=== PATIENT | female | born 1970 | race Caucasian/White ===

== ENCOUNTER → 2019-09-23 10:56 | Outpatient (CLI) | payer BC, SELFPAY ==
[2017-04-23 13:51] VITALS: BMI 24.2
[2019-09-23 12:58] LABS: Amphetamine Urine VISTA NEGATIVE (<1000 ng/mL); Barbiturate Urine VISTA NEGATIVE (< 200 ng/mL); Benzodiazepine Urine VISTA NEGATIVE (< 200 ng/mL); Cocaine Urine VISTA NEGATIVE (< 300 ng/mL); Ecstacy Urine VISTA NEGATIVE (< 500 ng/mL); Methadone Urine VISTA NEGATIVE (< 300 ng/mL); PCP Urine VISTA NEGATIVE (< 25 ng/mL); THC Urine VISTA NEGATIVE (< 50 ng/mL); Vista UDS pH Range 5
== END ==
LOC: MFPLAB 10:59 → LABSPEC 11:04
PROVIDERS: Visit Provider Family Medicine
DX: Z02.83 Encounter for blood-alcohol and blood-drug test (principal)
CPT/HCPCS: 80307

== ENCOUNTER → 2019-11-11 10:28 | Outpatient (CLI) | payer BC, SELFPAY ==
[2017-04-23 13:51] VITALS: BMI 24.2
[2019-11-11 13:11] LABS: Cholesterol 190 mg/dL (200); High Density Lipoprotein 52 mg/dL; Triglycerides 55 mg/dL; Very Low Density Lipoprotein 11 mg/dL (5-40)
[2019-11-16 21:26] LABS: HPV HC, High Risk Negative (Negative)
== END ==
PROVIDERS: Family Provider Family Medicine; PCP Family Medicine; Referring Provider Family Medicine; Visit Provider Family Medicine
DX: Z12.4 Encounter for screening for malignant neoplasm of cervix (principal); Z13.220 Encounter for screening for lipoid disorders
CPT/HCPCS: 36415; 80061; 87624; 88175; G0145

== ENCOUNTER → 2019-11-26 15:03 | Outpatient (CLI) | payer BC, SELFPAY ==
--- NOTE | 2019-11-26 15:06 | BI_ITS ---
MAMMOGRAPHY - BILATERAL SCREENING 3-D TOMOSYNTHESIS REASON FOR EXAM: Female, 49 years old. Annual screening mammogram. PERTINENT HISTORY: History of right needle biopsy. Bilateral implants in 2012. TECHNIQUE: 2-D mammograms and 3-D Tomosynthesis of the breast (s) were performed. Implant displacement views were also obtained. CAD was performed. COMPARISON: None. FINDINGS: The breast composition is composed of scattered fibroglandular density. Some glandular silicone implants without complications. Scattered benign calcifications are seen. No dense spiculated masses or suspicious microcalcifications are identified. No architectural distortion is identified. There is no skin thickening or retraction. There has been no significant change since the prior study. BI/SCREEN MAMM (CAD) W/JOSE ANTONIO BILAT IMPRESSION: No mammographic signs of malignancy. Routine yearly mammograms recommended. ASSESSMENT CATEGORY: BIRADS Category 2: Benign. A letter regarding these results will be sent to the patient by the facility within 30 days. FOLLOW UP RECOMMENDATION: Yearly follow up mammogram recommended. (A) Approximately 10% of breast cancers are not detected by mammography. A normal mammogram should not delay biopsy of a clinically suspicious abnormality. Electronically Signed: Corbin Arevalo MD at 16:57 EST , Service support ,
== END ==
PROVIDERS: Family Provider Family Medicine; PCP Family Medicine; Referring Provider Family Medicine; Visit Provider Family Medicine
DX: Z12.31 Encounter for screening mammogram for malignant neoplasm of breast (principal); Z12.4 Encounter for screening for malignant neoplasm of cervix
CPT/HCPCS: 77063; 77067

== ENCOUNTER → 2020-12-19 14:21 | Outpatient (CLI) | payer BC, SELFPAY ==
--- NOTE | 2020-12-19 14:27 | RAD_ITS ---
STUDY: X-RAY - CERVICAL SPINE REASON FOR EXAM: Female, 50 years old. LEFT ARM NUMBNESS, FUSION OF SPINE March 2019 TECHNIQUE: 7 view(s) of the cervical spine were obtained. COMPARISON: 09/12/2012 FINDINGS: Normal anterior atlantoaxial articulation. Normal odontoid process. Normal cervical lordosis. Status post anterior cervical discectomy and fusion at C5/C6 with anatomic alignment and no subluxation on the flexion or extension views to suggest instability. Normal vertebral bodies and endplates. Normal disc space heights. Normal visualized intervertebral neuroforamina. The soft tissue structures are unremarkable. RAD/Cerv Spine Obl/Flex/Ext Comp IMPRESSION: Interval anterior cervical discectomy and fusion at C5/C6 with anatomic alignment and no instability. Electronically Signed: Everardo Pagan MD at 16:58 EST Tel , Service support ,
== END ==
PROVIDERS: PCP Family Medicine
DX: M43.22 Fusion of spine, cervical region (principal)
CPT/HCPCS: 72052

== ENCOUNTER → 2021-04-17 10:06 | Outpatient (CLI) | payer BC, SELFPAY ==
[2021-01-23 15:16] VITALS: BMI 26.2
== END ==
LOC: LAB 10:08 → LABSPEC 10:11
PROVIDERS: PCP Family Medicine; Referring Provider Family Medicine; Visit Provider Family Medicine
DX: N39.0 Urinary tract infection, site not specified (principal)
CPT/HCPCS: 87086; 87088

== ENCOUNTER → 2021-04-20 18:01 | Outpatient (CLI) | payer BC, SELFPAY ==
[2021-01-23 15:16] VITALS: BMI 26.2
[2021-04-20 18:03] LABS: Bacteria 0 SEEN /hpf (None Seen); Mucous, Urine 0 SEEN /hpf (<or=2+); Red Blood Cells-Urine 0 SEEN /hpf (0-5); White Blood Cells 0 SEEN /hpf (0-5)
[2021-04-20 18:09] LABS: Color, Urine Yellow (Yellow); Glucose, Dipstick Normal (Normal); Ketone-Dipstick Negative (Negative); Leukocyte Esterase-Dipstick Negative /ul (Negative); Nitrite-Dipstick Negative (Negative); Occult Blood-Urine 10 /ul (Negative); Protein-Dipstick Negative (Negative); Urine Bilirubin Dipstick Negative (Negative); Urine Clarity Clear (Clear); Urine Urobilinogen 1 mg/dl (Normal)
[2021-04-20 18:16] LABS: Squamous Epithelial Cells - UA 0-5 SEEN /hpf (5-10)
== END ==
PROVIDERS: PCP Family Medicine; Referring Provider Family Medicine; Visit Provider Family Medicine
DX: N39.0 Urinary tract infection, site not specified (principal)
CPT/HCPCS: 81001; 87086; 87088

== ENCOUNTER 2021-11-22 12:30 | Outpatient (RCR) | payer OTHER, BC, SELFPAY ==
--- NOTE | 2021-11-05 16:12 | HP.PTEVAL ---
Patient's Visit Information CHAYO MADSEN is a 51 year old F referred to Physical Therapy by Dr. Joni Nieto MD with a diagnosis of LEFT SHOULDER SPRAIN. Date of Evaluation: 11/05/21 Physical Therapist: Joni Oropeza PT, Cert MDT, OCS - Visit Plan Frequency: 2-3x /Week Duration: 4 Weeks Plan: PT INTERVENTIONS POSTURAL EX'S ,RTC/SCAPULAR,STRENGTHENING, AND MODALTIES - Subjective This 51 y/o female presents to physical therapy for left shoulder sprain. Patient injury left shoulder NOV 2 at work pushing w/c up ramp. Patient felt crack in shoulder, Patient had pain ,thus seen DR at [facility] recommended PT and flexural. Patient had x-rays -. C/O paresthesia /tingling in hand. Pain left shoulder to elbow and muscle spasms scapular /thoracic spine. Aggravating factors sitting ,raising arm ,lifting something. Pain affects sleeping. Patient also c/o HALL. Alleviating heat/ice. Patient hasn't RTW. Patient pain affects QOL and function and RTW. PMH: cervical fusion with bone graft /plate srews. SOCIAL: marrried. VOCATION: [employer] - Pain Left Shoulder Pain Intensity (Out of 10): 4 Left Scapula Pain Intensity (Out of 10): 5 Pain Intensity Range: 10 - Objective POSTURE: mild forward posture. PALAPTION: UT /levator. NEURO: c/o paresthesia/tingling left hand. AROM: left shoulder flexion 150 degrees, abduction 150 in scapular ,90 degrees pain all planes ,IR L1. MMT: deltoid 3+/5,RTC 4/5 ,supraspinatous 4-/5,biceps 4-/5,triceps 4-/5 wrist 4/5. 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 CERVICAL ROM: flexion min loss lateral flexion/rotation .extension mod loss peripheralizes symptoms in left arm - Special Tests C/S Radiculapathy - Left Upper limb tension test: Negative C/S Radiculapathy - Right Upper limb tension test: Negative C/S Radiculapathy - Left Spurlings: Positive C/S Radiculapathy - Right Spurlings: Negative L Shoulder Lift Off Test - Subscapular Tear: Negative L Shoulder Empty Can - SS: Negative L Shoulder Neer - Impingement: Positive L Shoulder Nazario Newton - Impingement: Positive - Balance/Special Test Scores Quick DASH Score: 86.3625 - Goals Goal 1:: Patient to be with HEP Goal Time Frame: 4-6 Weeks Goal 2:: Patient to improve posture for ADLS' Goal Time Frame: 4-6 Weeks Goal 3:: Patient demonstrate 50% improvement with decrease pain of left UE /scapular to improve function Goal Time Frame: 4-6 Weeks Goal 4:: Patient to improve strength left shoulder to 4/5 to improve function and ADLS' Goal Time Frame: 4-6 Weeks Goal 5:: Patient to improve quick dash by 5 points to improve QOL and RTW Goal Time Frame: 4-6 Weeks - Rehabilitation Potential Physical Therapy Diagnosis: This patient injury left scapular and shoulder region causing symptoms in left arm with pain, weakness ,paresthesia/tingling in hand affects ADL'S and inability to RTW ,thus benefit from skilled PT Rehabilitation Potential: Good - Anticipated Interventions Patient/Client Instruction: Educate patient on: Condition, Plan of Care For the Purpose of:: To decrease pain, To increase ROM, To improve nutrient delivery to tissue, To improve muscle performance and motor function, To improve ability to perform ADL's, To improve performance and independence with ADL's, To improve ability of physical actions for home/community/work/leisure, To improve health of tissue, To decrease soft tissue restriction, To increase flexibility/ROM, To assume or resume ADL's, To reduce risk of recurrence, To prevent re-injury, To improve tolerance to ADL's Therapeutic Exercise to Include: Strength training, Postural training, Flexibilty training, Active ROM, Scapular Strength/Stabilization For the Purpose of:: To decrease pain, To increase ROM, To improve muscle performance and motor function, To improve ability to perform ADL's, To increase tolerance to activity/condition/position, To improve ability of physical actions for home/community/work/leisure, To improve health of tissue, To decrease soft tissue restriction, To increase flexibility/ROM, To prevent re-injury TENS: Yes IF ES: Yes Cryotherapy (ice pack, ice massage): Yes Thermo therapy (hot pack): Yes Ultrasound (thermal/non thermal): Yes For the Purpose of:: To decrease pain, To increase ROM, To improve nutrient delivery to tissue, To increase oxygenation perfusion, To improve health of tissue, To decrease soft tissue restriction Thank you for the opportunity to evaluate your patient. For Medicare and Medicare HMO plans, please review the plan of care and approve it. It will need to be FAXED BACK to us at [phone] for Medicare purposes. For Medicare only, by signing this I certify the plan of care. Please let me know if there are questions or concerns regarding this plan of care. Physician Signature: Date:
--- NOTE | 2021-12-17 13:39 | HP.PT.NRP ---
CHAYO MADSEN was seen in my office for initial evaluation on 11/05/21. The following Plan of Care was established for this patient: Initial Frequency: 2-3x /Week Initial Duration: 4 Weeks Patient/Client Instruction: Educate patient on: Condition, Plan of Care For the Purpose of:: To decrease pain, To increase ROM, To improve nutrient delivery to tissue, To improve muscle performance and motor function, To improve ability to perform ADL's, To improve performance and independence with ADL's, To improve ability of physical actions for home/community/work/leisure, To improve health of tissue, To decrease soft tissue restriction, To increase flexibility/ROM, To assume or resume ADL's, To reduce risk of recurrence, To prevent re-injury, To improve tolerance to ADL's Therapeutic Exercise to Include: Strength training, Postural training, Flexibilty training, Active ROM, Scapular Strength/Stabilization For the Purpose of:: To decrease pain, To increase ROM, To improve muscle performance and motor function, To improve ability to perform ADL's, To increase tolerance to activity/condition/position, To improve ability of physical actions for home/community/work/leisure, To improve health of tissue, To decrease soft tissue restriction, To increase flexibility/ROM, To prevent re-injury TENS: Yes IF ES: Yes Cryotherapy (ice pack, ice massage): Yes Thermo therapy (hot pack): Yes Ultrasound (thermal/non thermal): Yes For the Purpose of:: To decrease pain, To increase ROM, To improve nutrient delivery to tissue, To increase oxygenation perfusion, To improve health of tissue, To decrease soft tissue restriction This patient was last seen in our office . Pertinent comments regarding their Physical therapy will appear below: Patient seen for PT for shoulder pain focusing on modalities and RTC/SCAPULAR STRENGTHNEING thus is d/c At this point I will be discontinuing this patient from physical therapy. I would be happy to see this patient again in the future if found appropriate by the physician. Thank you! Joni Oropeza, PT, Cert MDT, OCS Balance/Gait/Functional tests - Balance/Special Test Scores Quick DASH Score: 20.4508
== END 2021-11-22 19:00 | disposition home or self-care (01) ==
LOC: PT 12:30
PROVIDERS: PCP Family Medicine; Referring Provider Emergency Medicine; Visit Provider Emergency Medicine
DX: S43.402D Unspecified sprain of left shoulder joint, subsequent encounter (principal); X58.XXXD Exposure to other specified factors, subsequent encounter
CPT/HCPCS: 97014; 97035; 97110; 97162; G0283

== ENCOUNTER → 2021-11-28 | Outpatient (CLI) | payer BC, SELFPAY | END | disposition home or self-care (01) | LOC: LABSPEC 17:12 | PROVIDERS: PCP Family Medicine; Visit Provider Nurse Practitioner Family | DX: Z20.822 Contact with and (suspected) exposure to COVID-19 (principal) | CPT/HCPCS: 87635; U0005; U0003 ==

== ENCOUNTER 2021-12-03 16:00 | Outpatient (CLI) | payer BC, SELFPAY | END 2021-12-03 23:59 | disposition short-term general hospital (02) | LOC: LABSPEC 12-06 13:48 | PROVIDERS: Visit Provider Family Medicine | DX: U07.1 COVID-19 (principal) | CPT/HCPCS: 87635; U0003; U0005 ==

== ENCOUNTER 2021-12-11 17:24 | Outpatient (CLI) | payer OTHER, SELFPAY ==
--- NOTE | 2021-12-11 17:30 | MRI_ITS ---
STUDY: MRI LEFT SHOULDER REASON FOR EXAM: Female, 51 years old. SPRAIN LEFT SHOULDER TECHNIQUE: Standardized fat and water weighted pulse sequences were obtained in all 3 orthogonal planes. COMPARISON: Chest x-ray dated August 17, 2013 FINDINGS: Normal supraspinatus tendon. Normal infraspinatus tendon. Normal subscapularis tendon. Normal teres minor tendon. Normal supraspinatus muscle. Normal infraspinatus muscle. Normal subscapularis muscle. Normal teres minor muscle. Normal glenohumeral articulation. Normal humeral head and visualized proximal humerus. Normal biceps labral complex. Normal intracapsular long biceps tendon. Normal labrum. Normal capsulo- ligamentous complex. Normal rotator interval. Normal acromioclavicular articulation. There is a Type II morphology (curved), with a neutral orientation. There is no subacromial-subdeltoid bursal fluid. Normal visualized coracohumeral and coracoacromial ligaments. Normal quadrilateral space. Normal axillary space. No marrow edema or osteochondral defect is seen. No visualized occult fracture. No glenohumeral joint effusion is present. Normal deltoid muscle. Normal trapezius muscle. MRI/Upper Ext Joint Only(Routine) IMPRESSION: 1. Negative MRI of the left shoulder. 2. No marrow edema or osteochondral defect is seen. No visualized occult fracture. Electronically Signed: Reji Junior MD at 21:31 EST , Service support ,
== END 2021-12-11 23:59 | disposition short-term general hospital (02) ==
LOC: MRI 17:27
PROVIDERS: PCP Family Medicine; Visit Provider Family Medicine
DX: S43.402A Unspecified sprain of left shoulder joint, initial encounter (principal); X58.XXXA Exposure to other specified factors, initial encounter
CPT/HCPCS: 73221

== ENCOUNTER 2022-02-28 14:35 | Outpatient (CLI) | payer OTHER, SELFPAY ==
--- NOTE | 2022-02-28 14:38 | RAD_ITS ---
STUDY: X-RAY CHEST REASON FOR EXAM: Female, 51 years old. Technologist Notes very sob since having covid at the beginning of December PAIN SOB TECHNIQUE: XR Chest 2 Views COMPARISON: 08.17.13 FINDINGS: There is no demonstrated pleural abnormality. Normal size heart. Normal mediastinum and aquilino. Normal visualized pulmonary arteries. Normal visualized aortic arch and descending thoracic aorta. There are diffuse degenerative changes of the visualized thoracic spine. Normal visualized ribs, clavicles, and shoulders. There is no demonstrated abnormality of the visualized soft tissue structures of the upper abdomen. RAD/Chest PA and Lateral IMPRESSION: There are no acute findings. Electronically Signed: Mitesh Romo MD at 16:52 EDT ,
== END 2022-02-28 23:59 | disposition home or self-care (01) ==
LOC: MTRAD 14:36
PROVIDERS: PCP Family Medicine; Referring Provider Family Medicine; Visit Provider Family Medicine
DX: R06.02 Shortness of breath (principal)
CPT/HCPCS: 71046

== ENCOUNTER 2022-05-03 11:46 | Emergency (ER) | payer OTHER, SELFPAY ==
[2022-05-03 11:46] VITALS: BP 131/78; PULSE 98; RESP 16; TEMP 36.7; O2SAT 99; BMI 28.5
--- NOTE | 2022-05-03 12:06 | CT_ITS ---
STUDY: CT ABDOMEN AND PELVIS WITH CONTRAST REASON FOR EXAM: Female, 51 years old. Abdominal pain RADIATION DOSAGE (If Supplied By Facility): CTDIvol = ( 14.97 ) mGy, DLP = ( 627.34 ) mGycm TECHNIQUE: Transaxial images were obtained from the dome of the diaphragm to the symphysis pubis without oral contrast. IV 75mL [id number]-[id number] was administered. Sagittal and coronal images were reconstructed. Individualized dose optimization techniques were used for this CT. COMPARISON: None. FINDINGS: There is evidence of bilateral breast prostheses. Minimal degree of increased linear markings at the lung bases suggestive of mild linear atelectasis. The visualized portions of the heart are within normal limits. Normal liver. The gallbladder is contracted. Normal spleen. Normal pancreas. Normal bilateral adrenal glands. Normal right kidney. Normal left kidney. There is a small hiatal hernia. Normal small intestine. Moderate amount of fecal material is seen in the colon. The appendix is visualized and appears normal. There is scattered atherosclerotic calcification of the abdominal aorta, without a demonstrated aneurysm. Normal inferior vena cava. There is borderline retroperitoneal lymphadenopathy with enlarged nodes no greater than 10mm in the short axis diameter. Normal urinary bladder. There is a small umbilical hernia containing fat. There are mild degenerative changes of the visualized lumbar spine. CT/Abdomen/Pelvis W IV Cont ONLY IMPRESSION: Contracted gallbladder. Moderate degree of fecal material is seen in the colon. Small umbilical hernia containing fat. Electronically Signed: Maurilio Tyler MD at 14:06 EDT ,
--- NOTE | 2022-05-03 12:07 | EX.ED.DYSGE1 ---
HPI <VICENTA Sacnhez - Last Filed: 05/03/22 14:25> History of Present Illness Chief Complaint: Abd Pain Narrative Narrative: 51-year-old female with history of drug abuse on Suboxone presents to the emergency department with 3 days of lower abdominal pain, back pain. Patient has been treated with 3 separate antibiotics over the last 2 weeks to be treated for urinary tract infection. Patient's urinary symptoms consist of urgency, pelvic pressure. Patient also states to have back pain today. The patient did get seen by her PCP today, told her to stop the antibiotics and to go to the emergency department for a outpatient ultrasound. Due to the patient's insurance, it would take 3 days so she is here for evaluation. She denies any fevers however does have chills. States to have nausea however no vomiting. Denies any bowel or bladder incontinence. PFSH <VICENTA Sanchez - Last Filed: 05/03/22 14:25> PFS Home Medications buprenorphine-naloxone 2 ea PO DAILY 04/23/17 [History Last Taken 04/19/17] clonidine HCl 0.1 mg PO TID 04/23/17 [History Last Taken 04/22/17] pregabalin 75 mg PO DAILY 04/23/17 [History Last Taken 04/22/17] ciprofloxacin HCl 500 mg PO BID #16 tab 04/24/17 [Rx Last Taken Unknown] naproxen [Naprosyn] 500 mg PO BID PRN #20 tab 05/03/22 [Rx Last Taken Unknown] promethazine 25 mg PO TID PRN #14 tab 05/03/22 [Rx Last Taken Unknown] Allergy/AdvReac Type Severity Reaction Status Date / Time metaxalone [From Skelaxin] AdvReac Other Verified 05/03/22 12:20 methocarbamol [From Robaxin] AdvReac Other Verified 05/03/22 12:20 Social History (Updated 01/23/21 @ 15:36 by NICKI Hester) Smoking Status: Light Smoker (<10/day) ROS <VICENTA Sanchez - Last Filed: 05/03/22 14:25> ROS ED ROS Narrative Constitutional: Negative for fever, weight loss, weakness. Positive for chills Eyes: Negative for vision loss, vision change, double vision ENT: Negative for any sore throat, ear pain, congestion Cardiovascular: Negative for any chest pain, tightness, palpitations Respiratory: Negative for any cough, sputum production, hemoptysis, dyspnea, dyspnea on exertion, orthopnea Gastrointestinal: Negative for any vomiting, diarrhea, constipation, blood in stool, blood in vomit. Positive for lower abdominal pain, nausea : Negative for any urinary frequency, dysuria, retention, blood in urine Muscle skeletal: Negative for any muscle joint pain, stiffness, myalgias, arthralgias, neck pain. Positive for back pain Neurological: Negative for any headache, syncope, numbness or tingling, dizziness Skin: Negative for any rashes, lumps, itching, abrasions, lacerations Psychiatric: Negative for any depression, anxiety, stress, suicidal ideation, homicidal ideation Hematologic: Negative for any easy bruising, excessive bruising, easy bleeding Allergies: Negative for any eczema, hives, rash EXAM <VICENTA Sanchez - Last Filed: 05/03/22 14:25> Physical Exam Narrative Exam Narrative: Vital signs reviewed. HEET: Head normocephalic atraumatic, TMs clear bilaterally. Posterior pharynx is clear, moist mucous membranes. Nares clear bilaterally. Neck: Supple with no lymphadenopathy or tenderness. No signs of meningismus, negative jolt sign. Cardiac: Regular rate and rhythm no murmurs gallops or rubs, equal peripheral pulses bilaterally. Respiratory: Lungs clear to auscultation bilaterally. No chest tenderness. Abdomen: Soft, nondistended. No abdominal bruit or pulsatile masses. No hepatosplenomegaly. Patient does have some tenderness to the lower abdomen as well as the right flank. Extremities: No peripheral edema, no signs of gross trauma or deformity. Active full range of motion of all extremities. Neuro: Cranial nerves II through XII intact, no focal neurological deficits. Skin: Clean dry and intact with no rash, purpura, petechiae, vesicles or pustules. Backs/flank: Positive bilateral CVA tenderness, no midline spinal tenderness, no deformity. Psych: Normal mood and affect. No SI, HI or acute psychosis. Const Vital Signs: 05/03/22 11:46 Temperature 98.1 F Temperature Source Temporal Pulse Rate 98 Respiratory Rate 16 Blood Pressure 131/78 H Blood Pressure Mean 95 Pulse Ox 99 Oxygen Delivery Method Room Air Positive well nourished and well developed General Appearance ED: well developed <Dr. Nicholas Glez, DO - Last Filed: 05/03/22 14:36> Physical Exam Const Vital Signs: 05/03/22 11:46 Temperature 98.1 F Temperature Source Temporal Pulse Rate 98 Respiratory Rate 16 Blood Pressure 131/78 H Blood Pressure Mean 95 Pulse Ox 99 Oxygen Delivery Method Room Air [facility] <Garland Gallagher VALVE SEATER OPERATOR-C - Last Filed: 05/03/22 14:25> [facility] Narrative Medical decision making narrative: Patient arrives in no distress, patient vital signs are stable. Patient presents to the emergency department with ongoing lower abdomen pain, pressure, frequent urination. Patient has been on 2 antibiotics for UTIs. Patient did receive a full abdominal work-up, patient CBC, chemistries were unremarkable, patient's urinalysis was negative for any infection. Patient did receive a CT scan of the abdomen pelvis with IV contrast, this did show contracted gallbladder moderate degree of fecal material in the colon however no acute process. She was given IV Toradol, IV Zofran, IV fluids. Patient will be given by mouth Phenergan for home as well as naproxen for pain. She is currently in a Suboxone program, and after the assessment, results today, I do not believe that narcotic pain medicine is indicated. She will be given urology follow-up and instructed to follow-up outpatient. She is happy with the plan of care and is stable for discharge. Lab Data Labs: Laboratory Results - last 24 hr 05/03/22 05/03/22 05/03/22 12:30 13:15 13:15 WBC 9.2 RBC 4.52 Hgb 13.6 Hct 41.8 MCV 92.5 MCH 30.1 MCHC 32.5 RDW Std Deviation 43.0 RDW Coeff of Parmjit 12.6 Plt Count 217 MPV 10.7 Immature Gran % (Auto) 0.200 Neut % (Auto) 56.1 Lymph % (Auto) 32.9 [place] % (Auto) 7.1 Eos % (Auto) 3.2 Baso % (Auto) 0.5 Absolute Neuts (auto) 5.1 Absolute Lymphs (auto) 3.01 Nucleated RBC % 0 Sodium 140 Potassium 4.7 Chloride 107 Carbon Dioxide 31.0 Anion Gap 2 L BUN 12 Creatinine 0.83 Estim Creat Clear Calc 66.33 Est GFR (MDRD) Af Amer 93 Est GFR (MDRD) Non-Af 77 BUN/Creatinine Ratio 14.4 Glucose 67 L Calcium 9.1 Total Bilirubin 0.60 AST 55 H ALT 54 Alkaline Phosphatase 95 Total Protein 8.2 Albumin 3.8 Globulin 4.4 H Albumin/Globulin Ratio 0.9 Lipase 196 Urine Color Yellow Urine Clarity Clear Urine pH 7.0 Ur Specific [place] 1.010 Urine Protein Negative Urine Glucose (UA) Normal Urine Ketones Negative Urine Occult Blood Negative Urine Nitrite Negative Urine Bilirubin Negative Urine Urobilinogen Normal Ur Leukocyte Esterase Negative Urine RBC 0-5 SEEN Urine WBC 0 SEEN Ur Squamous Epith Cells 0-5 SEEN Urine Bacteria RARE Urine Mucus 0 SEEN Radiography Diagnostic Testing: Clinical Impression(s) from Imaging Studies Abdomen/Pelvis CT 05/03/22 12:06 IMPRESSION: Contracted gallbladder. Moderate degree of fecal material is seen in the colon. Small umbilical hernia containing fat. Electronically Signed: Maurilio Tyler MD at 14:06 EDT , EKG Sinus tachycardia: Attestation: I personally reviewed and interpreted this EKG as follows: Comments: Sinus tachycardia rate of 123 bpm, OR interval 144 ms, QRS duration 72 ms, no acute ST elevation, no acute infarct noted. <Dr. Nicholas Glez, DO - Last Filed: 05/03/22 14:36> [facility] Narrative Medical decision making narrative: This patient was seen with a PA/VALVE SEATER OPERATOR Individually assessed they patient including history and physical. I have reviewed everything on the chart that is available and agree with the documentation provided by the PA/VALVE SEATER OPERATOR including discussion about the assessment, treatment plan, discussion, and return precautions. Patient presenting with urinary symptoms concern for UTI as she has been on 2 separate antibiotics. Her urinalysis is negative. Blood work today is normal. We did obtain a CT of the abdomen pelvis which is also normal. The radiologist does mention some fecal material. Patient was given an initial dose of Toradol IV prior to going to CAT scan where her IV blew. She had initial concern she did not get the Toradol. Nursing staff tells me that she did. She states she still having some discomfort and pressure in her pelvic area although I did social services counselor her work-up is normal. She did request some Phenergan. This was provided. I cannot give her another dose of Toradol this soon after the first dose. Patient is discharged home with follow-up with urology. Lab Data Attestation: I reviewed the patient's lab results. Labs: Laboratory Results - last 24 hr 05/03/22 05/03/22 05/03/22 12:30 13:15 13:15 WBC 9.2 RBC 4.52 Hgb 13.6 Hct 41.8 MCV 92.5 MCH 30.1 MCHC 32.5 RDW Std Deviation 43.0 RDW Coeff of Parmjit 12.6 Plt Count 217 MPV 10.7 Immature Gran % (Auto) 0.200 Neut % (Auto) 56.1 Lymph % (Auto) 32.9 [place] % (Auto) 7.1 Eos % (Auto) 3.2 Baso % (Auto) 0.5 Absolute Neuts (auto) 5.1 Absolute Lymphs (auto) 3.01 Nucleated RBC % 0 Sodium 140 Potassium 4.7 Chloride 107 Carbon Dioxide 31.0 Anion Gap 2 L BUN 12 Creatinine 0.83 Estim Creat Clear Calc 66.33 Est GFR (MDRD) Af Amer 93 Est GFR (MDRD) Non-Af 77 BUN/Creatinine Ratio 14.4 Glucose 67 L Calcium 9.1 Total Bilirubin 0.60 AST 55 H ALT 54 Alkaline Phosphatase 95 Total Protein 8.2 Albumin 3.8 Globulin 4.4 H Albumin/Globulin Ratio 0.9 Lipase 196 Urine Color Yellow Urine Clarity Clear Urine pH 7.0 Ur Specific [place] 1.010 Urine Protein Negative Urine Glucose (UA) Normal Urine Ketones Negative Urine Occult Blood Negative Urine Nitrite Negative Urine Bilirubin Negative Urine Urobilinogen Normal Ur Leukocyte Esterase Negative Urine RBC 0-5 SEEN Urine WBC 0 SEEN Ur Squamous Epith Cells 0-5 SEEN Urine Bacteria RARE Urine Mucus 0 SEEN Radiography Diagnostic Testing: Clinical Impression(s) from Imaging Studies Abdomen/Pelvis CT 05/03/22 12:06 IMPRESSION: Contracted gallbladder. Moderate degree of fecal material is seen in the colon. Small umbilical hernia containing fat. Electronically Signed: Maurilio Tyler MD at 14:06 EDT , Discharge Plan Triage Chief Complaint: Abd Pain ED Midlevel Provider: Garland Gallagher ED Provider: Nicholas Glez Dx/Rx/DC Orders Clinical Impression: History of changes to urinary frequency, Abdominal pain Instructions: Abdominal Pain Prescriptions: New naproxen [Naprosyn] 500 mg tablet 500 mg PO BID PRN (Reason: pain) Qty: 20 RF: 0 promethazine 25 mg tablet 25 mg PO TID PRN (Reason: nausea and vomiting) Qty: 14 RF: 0 No Action clonidine HCl 0.1 MG tablet 0.1 mg PO TID RF: 0 pregabalin 75 MG capsule 75 mg PO DAILY RF: 0 buprenorphine-naloxone 1 EACH film 2 ea PO DAILY RF: 0 ciprofloxacin HCl 500 MG tablet 500 mg PO BID Qty: 16 RF: 0 Primary Care Provider: Douglas Cope Referrals: Douglas Cope MD [Primary Care Provider] - Aneudy Riddle MD [STAFF PHYSICIAN] - Activity Restrictions/Additional Instructions: It is uncertain what is causing your pain, you do not have a urinary tract infection. Please follow-up with urology regarding your urologic symptoms. Please take medications as needed. Phenergan can make you tired. Print Language: Bhutanese Disposition Disposition: Home, Self Care
[2022-05-03 12:45] LABS: Mucous, Urine 0 SEEN /hpf (<or=2+); White Blood Cells 0 SEEN /hpf (0-5)
[2022-05-03 12:50] LABS: Color, Urine Yellow (Yellow); Glucose, Dipstick Normal (Normal); Ketone-Dipstick Negative (Negative); Leukocyte Esterase-Dipstick Negative /ul (Negative); Nitrite-Dipstick Negative (Negative); Occult Blood-Urine Negative /ul (Negative); Protein-Dipstick Negative (Negative); Urine Bilirubin Dipstick Negative (Negative); Urine Clarity Clear (Clear); Urine Urobilinogen Normal (Normal)
[2022-05-03 13:02] LABS: Red Blood Cells-Urine 0-5 SEEN /hpf (0-5)
[2022-05-03 13:05] LABS: Bacteria RARE /hpf (None Seen); Squamous Epithelial Cells - UA 0-5 SEEN /hpf (5-10)
--- NOTE | 2022-05-03 13:19 | ED.RN ---
attempt x 3 for an iv unsuccessful
[2022-05-03 13:24] LABS: Absolute Lymphocyte Count 3.01 X10^3/uL (0.83-4.51); Absolute Neutrophil Count 5.1 X10^3/uL (2.0-7.7); Basophil# 0.05 X10^3/uL; Basophil% 0.5 % (0-1); Eosinophil# 0.29 X10^3/uL; Eosinophils% 3.2 % (0-5); Hematocrit 41.8 % (37-47); Hemoglobin 13.6 g/dL (12.0-15.0); Lymphocyte # 3.01 X10^3/ul (0.83-4.51); Lymphocyte % 32.9 % (19-41); Mean Corp Hgb Conc 32.5 g/dL (32-36); Mean Corpuscular Hgb 30.1 pg (27.0-32.0); Mean Corpuscular Volume 92.5 fL (81-99); Mean Platelet Vol. 10.7 fl (6.2-12.0); Monocyte# 0.65 X10^3/uL; Monocyte% 7.1 % (0-10); NRBC Flagged by Analyzer 0 % (0-5); Neutrophil # 5.13 X10^3/uL (2.7-7.7); Neutrophil % 56.1 % (47-70); Platelet Count 217 K/mm3 (150-450); RBC Distribution Width CV 12.6 % (11.6-14.6); Red Blood Count 4.52 M/mm3 (4.2-5.4); White Blood Count 9.2 K/mm3 (4.4-11.0)
[2022-05-03] MEDS: Ketorolac 15 MG/ML Vial IV (13:28)
[2022-05-03] MEDS: Ondansetron 4 MG/2 ML Vial IV (13:28)
[2022-05-03] MEDS: 0.9% Normal Saline 1,000 ML 1000 ML IV (13:28)
[2022-05-03 13:45] LABS: ALB/GLOB Ratio 0.9 RATIO (0.9-2.4); AST(SGOT) 55 U/L (15-37); Alanine Aminotransfer ALT/SGPT 54 U/L (13-56); Albumin, Serum 3.8 g/dL (3.2-5.0); Alkaline Phosphatase 95 U/L (45-117); Anion Gap 2 (5-15); BUN 12 mg/dL (7-18); BUN/Creat Ratio 14.4 RATIO (10-20); Calcium,Total 9.1 mg/dL (8.5-10.1); Chloride 107 mmol/L (98-107); Creatinine, Serum 0.83 mg/dL (0.55-1.02); EST Glomerular Filtration Rate 77 mL/min (>60); Est Glom Filt Rate - Afr Amer 93 mL/min (>60); Estimated Creatinine Clearance 66.33 ml/min; Globulin 4.4 g/dL (2.2-4.2); Glucose 67 mg/dL (74-106); Lipase 196 U/L (73-393); Potassium 4.7 mmol/L (3.5-5.1); Protein, Total 8.2 g/dL (6.4-8.2); Sodium Level 140 mmol/L (136-145)
[2022-05-03] MEDS: proMETHazine 25 MG Tablet PO (14:33)
[2022-05-03 14:45] VITALS: BP 141/79; PULSE 64; RESP 18; O2SAT 98
== END 2022-05-03 14:47 | disposition home or self-care (01) ==
PROVIDERS: Nurse Practitioner; Emergency Provider Student in an Organized Health Care Education/Training Program; PCP Family Medicine; Visit Provider Student in an Organized Health Care Education/Training Program
DX: R10.30 Lower abdominal pain, unspecified (principal); F17.200 Nicotine dependence, unspecified, uncomplicated
CPT/HCPCS: 74177; 80053; 81001; 83690; 85025; 96361; 96374; 96375; 99283; Q9967; A4216; J2405

== ENCOUNTER 2022-08-23 10:34 | Emergency (ER) | payer OTHER, SELFPAY ==
[2022-08-23 10:35] VITALS: BP 124/76; PULSE 94; RESP 16; TEMP 36.8; O2SAT 97; BMI 24.7
--- NOTE | 2022-08-23 10:57 | ED.VIS.LOWEX ---
HPI History of Present Illness Chief Complaint: Lower Extremity Injury Informant: patient Narrative Narrative: 52-year-old female presenting to the emergency department with complications from her left foot splint. The patient reports that she sustained an injury on Friday was seen at [facility] and diagnosed with a foot fracture. She was placed in a posterior splint. The patient took a bath yesterday and got the splint wet. A splint has been what ever since. She was advised to come to the emergency room to be resplinted. She states that she lives locally and would prefer to see somebody local as compared to traveling to [place] for her care. She does not know what specific fracture she sustained. [facility] Medical History Headache Nausea Nocturia Overactive bladder Home Medications buprenorphine 8 mg-naloxone 2 mg sublingual film 2 ea PO DAILY 04/23/17 [History Last Taken 04/19/17] gabapentin 800 mg tablet 800 mg PO TID 05/21/22 [History Last Taken Unknown] omeprazole 40 mg capsule,delayed release 40 mg PO DAILY 05/21/22 [History Last Taken Unknown] hydroxyzine pamoate 50 mg capsule (Vistaril) 50 mg PO QHS PRN insomnia #10 caps 08/23/22 [Rx Last Taken Unknown] Allergy/AdvReac Type Severity Reaction Status Date / Time metaxalone [From Skelaxin] AdvReac Other Verified 08/23/22 10:35 methocarbamol [From Robaxin] AdvReac Other Verified 08/23/22 10:35 Family History Mother Breast cancer Surgical History History of back surgery History of salpingectomy Social History Smoking Status: Light Smoker (<10/day) alcohol intake: former ROS ROS ED Constitutional Constitutional ED: Denies chills or weight loss Eyes Eyes: Denies change in vision or diplopia ENT ENT ED: Denies ear pain, rhinorrhea or sore throat Cardiovascular Cardiovascular: Denies chest pain, orthopnea, palpitations or racing heartbeat Respiratory/Chest Respiratory/Chest: Denies cough, dyspnea or orthopnea Gastrointestinal Gastrointestinal: Denies abdominal pain, diarrhea, nausea or vomiting Genitourinary Genitourinary ED: Denies dysuria, hematuria or urinary frequency Musculoskeletal Musculoskeletal: Reports other Details: See history of present illness ; Denies arthralgias or myalgias Integumentary Denies abscess or rash Neurologic Neurologic: Denies headache(s) or weakness Psychiatric Psychiatric: Denies anxiety, depression, suicidal ideation or suicidal thoughts Endocrine Endocrinology: Denies polydipsia, polyphagia or polyuria Allergic/Immunologic Allergic/Immunologic ED: Denies mouth swelling, tongue swelling or urticaria EXAM Physical Exam Const Vital Signs: 08/23/22 10:35 Temperature 98.3 F Temperature Source Temporal Pulse Rate 94 Respiratory Rate 16 Blood Pressure 124/76 H Blood Pressure Mean 92 Pulse Ox 97 Oxygen Delivery Method Room Air Positive well nourished and well developed General Appearance ED: well developed HEENT Reports normocephalic, head/scalp atraumatic and moist mucous membranes Eyes PERRL and EOMs intact bilaterally Neck no lymphadenopathy, supple and no JVD Resp normal respiratory effort and clear to auscultation bilaterally Cardio regular rate, regular rhythm and no murmurs GI normal to inspection, nondistended, normoactive bowel sounds and non-tender Palpation: soft Back/Spine no CVA tenderness and normal ROM Extremity Extremity Narrative: The splint is wet. I took the splint down which reveals a purple ecchymotic dorsum of the left foot. The plantar surface of the foot shows wet white moist skin that has clearly been exposed to moisture for extended period of time. Tender to palpation along the fifth metatarsal. Neurovascularly intact distal. No fibular head pain. General Extremety ED: Negative for edema General Extremity: Negative for edema Neuro oriented x3 and CN's II-XII intact bilaterally Sensorium / Orientation: alert Motor Exam: strength 5/5 throughout Psych mental status grossly normal Mood & Affect: Negative for depressed or tearful Skin no rashes or lesions noted and no wounds MDM MDM MDM Narrative Medical decision making narrative: My impression of the plain films left foot is a base of the fifth metatarsal fracture. The patient skin would benefit from drying. I stressed to her the importance of nonweightbearing until cleared by her doctor. She is to allow the foot to dry. She is to wear the boot at all times while up and sleeping. She will be referred to local podiatry Dr. Huffman is on-call. She does not wish any pain medication but would like something to help her sleep. She is on Suboxone. After reviewing the [facility] report I will write for her to have Vistaril. Radiography Diagnostic Testing: Clinical Impression(s) from Imaging Studies Foot X-Ray 08/23/22 11:07 IMPRESSION: Fracture of the bases of the fifth metatarsal bone. Soft tissue swelling visualized most prominent along the lateral aspect of the fifth metatarsophalangeal joint and the base of the fifth metatarsal bone. Electronically Signed: Kamaljit Quiñonez MD at 11:20 EDT , Discharge Plan Triage Chief Complaint: Lower Extremity Injury ED Provider: Antonio Whiteside Dx/Rx/DC Orders Clinical Impression: Closed nondisplaced fracture of fifth left metatarsal bone Instructions: ED Fracture, Foot Prescriptions: New hydroxyzine pamoate [Vistaril] 50 mg capsule 50 mg PO QHS PRN (Reason: insomnia) Qty: 10 0RF No Action gabapentin 800 mg tablet 800 mg PO TID omeprazole 40 mg capsule,delayed release(DR/EC) 40 mg PO DAILY buprenorphine-naloxone 1 EACH film 2 ea PO DAILY Primary Care Provider: Douglas Cope Referrals: Antonio Huffman DPM [Med Staff - Active Staff] - As soon as possible Douglas Cope MD [Primary Care Provider] - Disposition Disposition: Home, Self Care
--- NOTE | 2022-08-23 11:07 | RAD_ITS ---
INDICATION: fracture EXAMINATION/TECHNIQUE: X-RAY - LEFT XR Foot Min 3 Views 3 VIEWS COMPARISON: None. FINDINGS: A lucencies visualized traversing the base of the fifth metatarsal bone, soft tissue swelling visualized along the lateral aspect of the fifth digit findings suggestive of a fracture is no significant displacement. Soft tissue prominence also visualized along the lateral and inferior aspect of the fifth metatarsophalangeal joint. The remaining bones demonstrate no evidence of cortical irregularities or lucencies suggest fractures. No evidence of lytic or sclerotic bone lesions is seen, no evidence of periosteal reaction is visualized. Unremarkable bone alignment is no evidence of dislocation. Subtle inferior calcaneal spur is seen. RAD/Foot min 3 Views IMPRESSION: Fracture of the bases of the fifth metatarsal bone. Soft tissue swelling visualized most prominent along the lateral aspect of the fifth metatarsophalangeal joint and the base of the fifth metatarsal bone. Electronically Signed: Kamaljit Quiñonez MD at 11:20 EDT ,
[2022-08-23 11:54] VITALS: BP 146/77; PULSE 82; RESP 16; O2SAT 98
== END 2022-08-23 11:57 | disposition home or self-care (01) ==
PROVIDERS: Emergency Provider Emergency Medicine; PCP Family Medicine; Visit Provider Emergency Medicine
DX: S92.355D Nondisplaced fracture of fifth metatarsal bone, left foot, subsequent encounter for fracture with routine healing (principal); F17.200 Nicotine dependence, unspecified, uncomplicated; X58.XXXD Exposure to other specified factors, subsequent encounter
CPT/HCPCS: 73630; 99283

== ENCOUNTER 2025-06-30 18:36 | Emergency (ER) | payer MEDICAID, SELFPAY ==
[2025-06-30 18:37] VITALS: BP 152/97; PULSE 109; RESP 18; TEMP 36.6; O2SAT 98; BMI 22.7
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
[2025-06-30 19:57] VITALS: BP 148/81; PULSE 109; RESP 18; TEMP 36.6; O2SAT 98
== END 2025-06-30 19:58 | disposition home or self-care (01) ==
PROVIDERS: Emergency Provider Emergency Medicine; PCP Family Medicine; Visit Provider Emergency Medicine
DX: Z76.0 Encounter for issue of repeat prescription (principal); F11.11 Opioid abuse, in remission; F10.21 Alcohol dependence, in remission; Z79.891 Long term (current) use of opiate analgesic; F17.200 Nicotine dependence, unspecified, uncomplicated
CPT/HCPCS: 99282